=== PATIENT | female | born 1960 | race American Indian/Alaskan Native ===

== ENCOUNTER 2018-02-09 14:57 | Emergency (ER) | payer MEDICAID ==
[2018-02-09] MEDS ORDERED: KEPPRA 1,000 MG/NS 0.75% 100ML 1,000 MG/100 ML BAG IV ONE (18:42)
[2018-02-09] MEDS ORDERED: HumuLIN R SUB-Q ONE (18:42)
--- NOTE | 2018-02-09 18:46 | Emergency Department Report ---
ED Seizure HPI - General Chief Complaint: Seizure Stated Complaint: SEIZURE Time Seen by Provider: 02/09/18 18:34 Source: family, EMS Mode of arrival: Stretcher Limitations: No Limitations, Other - History of Present Illness Initial Comments: Patient is 57 years old female history of hypertension, diabetes and seizure. Patient is from [facility]. She stated that she had a history of seizure but she never been on any medication for it before. Patient brought to the ER after one episode of seizure, tonic-clonic. Patient denied any injury she was slightly confused after the events but patient is alert oriented 3 now denied any weakness numbness or tingling sensation. No headache or neck pain. Patient denied any history of fever recently. MD Complaint: seizure -: Sudden Description of Episode: loss of consciousness, tonic-clonic movement, post- event confusion Witnessed:: Yes Trauma: No Seizure History: known seizure disorder Place: street/outdoors Possible Precipitating Event: none Associated Symptoms: denies other symptoms. denies: chest pain, confusion, cough, diaphoresis, fever/chills, loss of appetite, malaise, rash, shortness of breath, syncope, weakness, tongue injury, shoulder dislocation - Related Data Allergies Allergy/AdvReac Type Severity Reaction Status Date / Time Penicillins Allergy Unknown Verified 02/09/18 15:36 ED Review of Systems ROS: Stated complaint: SEIZURE Other details as noted in HPI Comment: All other systems reviewed and negative Constitutional: denies: chills, fever Respiratory: denies: cough, orthopnea, shortness of breath, SOB with exertion, SOB at rest Cardiovascular: denies: chest pain, palpitations, dyspnea on exertion Gastrointestinal: denies: abdominal pain, nausea, vomiting Neurological: denies: headache, weakness ED Past Medical Hx - Past Medical History Hx Hypertension: Yes Hx Diabetes: Yes Hx Seizures: Yes - Social History Smoking Status: Never Smoker Substance Use Type: None ED Physical Exam - General Limitations: No Limitations, Other General appearance: alert, in no apparent distress - Head Head exam: Present: atraumatic, normocephalic, normal inspection - Eye Eye exam: Present: normal appearance - ENT ENT exam: Present: normal exam, normal orophraynx, mucous membranes moist - Neck Neck exam: Present: normal inspection, full ROM. Absent: tenderness, meningismus, lymphadenopathy, thyromegaly - Respiratory Respiratory exam: Present: normal lung sounds bilaterally, prolonged expiratory. Absent: respiratory distress, wheezes, rales, rhonchi, accessory muscle use, decreased breath sounds - Cardiovascular Cardiovascular Exam: Present: regular rate, normal rhythm, normal heart sounds - GI/Abdominal GI/Abdominal exam: Present: soft, normal bowel sounds. Absent: distended, tenderness, guarding, rebound, rigid, organomegaly, mass, bruit, pulsatile mass , hernia - Extremities Exam Extremities exam: Present: normal inspection, full ROM, normal capillary refill - Back Exam Back exam: Present: normal inspection, full ROM, rash noted. Absent: tenderness , CVA tenderness (R), CVA tenderness (L), muscle spasm, paraspinal tenderness, vertebral tenderness - Neurological Exam Neurological exam: Present: alert, oriented X3, CN II-XII intact, normal gait, reflexes normal - Skin Skin exam: Present: warm, intact, normal color ED Course Vital Signs 02/09/18 02/09/18 02/09/18 15:36 16:32 16:45 Temperature 98.9 F Pulse Rate 102 H 88 Respiratory 20 21 9 L Rate Blood Pressure 173/89 166/85 O2 Sat by Pulse 98 100 Oximetry 02/09/18 02/09/18 02/09/18 17:00 17:15 17:30 Temperature Pulse Rate 87 84 79 Respiratory 13 13 10 L Rate Blood Pressure 166/85 162/89 171/72 O2 Sat by Pulse 100 100 99 Oximetry 02/09/18 02/09/18 02/09/18 17:40 17:45 18:00 Temperature Pulse Rate 75 91 H Respiratory 18 18 19 Rate Blood Pressure 164/80 173/96 O2 Sat by Pulse 96 100 99 Oximetry 02/09/18 02/09/18 02/09/18 18:15 18:30 18:45 Temperature Pulse Rate 93 H 91 H 95 H Respiratory 18 15 16 Rate Blood Pressure 183/97 179/100 187/103 O2 Sat by Pulse 100 100 100 Oximetry 02/09/18 02/09/18 19:00 19:15 Temperature Pulse Rate 85 79 Respiratory 15 16 Rate Blood Pressure 182/99 160/89 O2 Sat by Pulse 98 99 Oximetry ED Medical Decision Making - Lab Data Result diagrams: 02/09/18 18:48 02/09/18 18:48 - EKG Data -: EKG Interpreted by Wy EKG shows normal: sinus rhythm Rate: normal - EKG Data Interpretation: no acute changes - Radiology Data Radiology results: report reviewed Referring Physician: Daniel Walton Patient Name: PAWEL GUILLEN Date of : 1960 Sex: Female Report Date: 2018-02-09 Report Status: Finalized Findings [facility] [address] [place] [address] Cat Scan Report Signed with Addenda Patient: PAWEL GUILLEN MR#: [id number] : 1960 Acct:[id number] Age/Sex: 57 / F ADM Date: 02/09/18 Loc: ED Attending Dr: Ordering Physician: Daniel Walton MD Date of Service: 02/09/18 Procedure(s): CT head/brain wo con Accession Number(s): [id number] cc: Daniel Walton MD ADDENDUM FINAL REPORT EXAM: CT HEAD/BRAIN WO CON HISTORY: seizure TECHNIQUE: Axial noncontrast CT images of the brain were performed Comparison: None FINDINGS: There is a 7.4 millimeter ill-defined low-density of the left insular cortex. Ill-defined low-density of the bilateral occipital white matter. No acute extra-axial fluid collection or midline shift. No mass effect. No intraparenchymal blood products or extra-axial fluid collections. Conjugate gaze. Clear imaged paranasal sinuses. Orbital cones and apices are within normal limits. Posterior fossa is unremarkable. IMPRESSION: Ill-defined low-density of the bilateral occipital white matter subcortical location incompletely characterize may be related to early atrophy. 7.4 millimeter left insular cortex low-density suggestive of small age-indeterminate lacunar infarct axial image series 2. No loss of the hood-white differentiation identified. No blood products. Recommend MRI brain with diffusion-weighted imaging. Critical level 2 report. Findings called on 02/09/2018 at 2003 hours Eastern Standard time. ADDENDUM FINAL REPORT Addendum: Findings relayed to Dr. Pickard on 02/09/2018 at 2008 hours by Kyle OSJuancho Avila. Addendum Transcribed By: JOSE Addendum Dictated By: CALEB MCDANIEL Addendum Electronically Authenticated By: CALEB MCDANIEL Addendum Signed Date/Time: 02/09/182014 DD/ /22/2015 TD/TT: 02/09/1803/22/2015 FINAL REPORT EXAM: CT HEAD/BRAIN WO CON HISTORY: seizure TECHNIQUE: Axial noncontrast CT images of the brain were performed Comparison: None FINDINGS: There is a 7.4 millimeter ill-defined low-density of the left insular cortex. Ill-defined low-density of the bilateral occipital white matter. No acute extra-axial fluid collection or midline shift. No mass effect. No intraparenchymal blood products or extra-axial fluid collections. Conjugate gaze. Clear imaged paranasal sinuses. Orbital cones and apices are within normal limits. Posterior fossa is unremarkable. IMPRESSION: Ill-defined low-density of the bilateral occipital white matter subcortical location incompletely characterize may be related to early atrophy. 7.4 millimeter left insular cortex low-density suggestive of small age-indeterminate lacunar infarct axial image series 2. No loss of the hood-white differentiation identified. No blood products. Recommend MRI brain with diffusion-weighted imaging. Critical level 2 report. Findings called on 02/09/2018 at 2003 hours Eastern Standard time. Transcribed By: JOSE Dictated By: CALEB MCDANIEL Electronically Authenticated By: CALEB MCDANIEL Signed Date/Time: 02/09/182005 DD/ 05 TD/TT: 02/09/182005 - Medical Decision Making No evidence of seizure observed in the ER. I informed the patient about her CT brain results and the need to follow-up with an neurologist as soon as possible. Patient stated that she will follow-up with a neurologist in the next week or so. Critical care attestation.: If time is entered above; I have spent that time in minutes in the direct care of this critically ill patient, excluding procedure time. ED Disposition Clinical Impression: Seizure, Hyperglycemia Disposition: DC-01 TO HOME OR SELFCARE Is pt being admited?: No Condition: Stable Instructions: Recurrent Seizures Adult (ED) Referrals: PRIMARY CARE,MD [Primary Care Provider] - 3-5 Days
[2018-02-09 19:11] LABS: Basophils % (Auto) 0.7 % (0.0-1.8); Eosinophils % (Auto) 0.9 % (0.0-4.3); Hematocrit 34.7 % (30.3-42.9); Hemoglobin 11.5 gm/dl (10.1-14.3); Lymphocytes # (Auto) 1.3 K/mm3 (1.2-5.4); Lymphocytes % (Auto) 30.3 % (13.4-35.0); Mean Corpuscular HGB Conc 33 % (30-34); Mean Corpuscular Hemoglobin 29 pg (28-32); Mean Corpuscular Volume 88 fl (79-97); Monocytes # (Auto) 0.4 K/mm3 (0.0-0.8); Platelet Count 221 K/mm3 (140-440); Red Blood Count 3.96 M/mm3 (3.65-5.03); Red Cell Distribution Width 13.4 % (13.2-15.2)
[2018-02-09 19:27] VITALS: BP 160/89
[2018-02-09 19:28] LABS: Alanine Aminotransferase 35 units/L (7-56); Albumin 4.3 g/dL (3.9-5); BUN/Creatinine Ratio 13; Blood Urea Nitrogen 9 mg/dL (7-17); Calcium 9.6 mg/dL (8.4-10.2); Hemolysis Index 5
--- NOTE | 2018-02-09 20:10 | Cat Scan Report ---
FINAL REPORT EXAM: CT HEAD/BRAIN WO CON HISTORY: seizure TECHNIQUE: Axial noncontrast CT images of the brain were performed Comparison: None FINDINGS: There is a 7.4 millimeter ill-defined low-density of the left insular cortex. Ill-defined low-density of the bilateral occipital white matter. No acute extra-axial fluid collection or midline shift. No mass effect. No intraparenchymal blood products or extra-axial fluid collections. Conjugate gaze. Clear imaged paranasal sinuses. Orbital cones and apices are within normal limits. Posterior fossa is unremarkable. IMPRESSION: Ill-defined low-density of the bilateral occipital white matter subcortical location incompletely characterize may be related to early atrophy. 7.4 millimeter left insular cortex low-density suggestive of small age-indeterminate lacunar infarct axial image series 2. No loss of the hood-white differentiation identified. No blood products. Recommend MRI brain with diffusion-weighted imaging. Critical level 2 report. Findings called on 02/09/2018 at 2003 hours Eastern Standard time.
[2018-02-09 20:24] LABS: Bacteria,Urine 1+ /HPF (Negative); Bilirubin,Urine NEG (Negative); Blood,Urine NEG (Negative); Color,Urine Straw (Yellow); Protein,Urine <15 mg/dL mg/dL (Negative); RBC,Urine < 1.0 /HPF (0.0-6.0); Urobilinogen,Urine < 2.0 mg/dL (<2.0); WBC,Urine < 1.0 /HPF (0.0-6.0)
== END 2018-02-09 20:58 | disposition home or self-care (01) ==
LOC: ED 14:57
DX: G40.909 Epilepsy, unspecified, not intractable, without status epilepticus (principal); E11.65 Type 2 diabetes mellitus with hyperglycemia; I10 Essential (primary) hypertension; Z88.0 Allergy status to penicillin
CPT/HCPCS: 36415; 70450; 80053; 81001; 82550; 82962; 84484; 85025; 93005; 93010; 96372; 96374; 99284; J1953; J1815